=== PATIENT | male | born 1985 | race Caucasian/White ===

== ENCOUNTER 2022-09-04 00:18 | Emergency (ER) | payer BC ==
[~2022-09-04] VITALS: Ht 170.2 cm; Wt 86.0 kg
[2022-09-04 00:21] VITALS: BP 157/98
[2022-09-04] MEDS ORDERED: HYDROCODONE/ACETAMINOPHEN 5/325MG TABLET PO STA (01:03)
[2022-09-04] MEDS ORDERED: TETANUS, DIPHTHERIA, PERTUSSIS VAC/PF 0.5ML (>10YR OLD) IM ONE ×2 (01:15→03:00)
[2022-09-04] MEDS ORDERED: LIDOCAINE HCL 1% 20ML VIAL (Pyxis) INJ INFIL ONE (01:15)
[2022-09-04] MEDS ORDERED: LIDOCAINE HCL 1% 20ML VIAL (Pyxis) INJ INFIL NR (03:00)
[2022-09-04] MEDS ORDERED: NAPR500T7 MT (06:26)
== END 2022-09-04 06:50 | disposition home or self-care (01) ==
LOC: ER 00:18
DX: S01.511A Laceration without foreign body of lip, initial encounter (principal); Y04.0XXA Assault by unarmed brawl or fight, initial encounter; Y93.89 Activity, other specified; Y92.89 Other specified places as the place of occurrence of the external cause; Y99.8 Other external cause status
CPT/HCPCS: 12011; 70450; 70486; 72125; 90471; 90715; 99285; J3490